=== PATIENT | female | born 1955 | race Two or more races ===

== ENCOUNTER 2018-11-17 17:04 | Emergency (ER) | payer OTHER ==
[~2018-11-17] VITALS: Ht 162.6 cm; Wt 90.7 kg
[~2018-11-17 17:04] MED LIST: AUGMENTIN 875-1 EACH PO; CARISOPRODOL350 MG PO; FUROSEMIDE20 MG PO; METFORMIN HCL500 MG PO; MORPHINE SULFA100 MG PO; MORPHINE SULFAT30 M1 PO; OXYCODONE-ACET1 EAC3 PO; POTASSIUM CHLO20 ME1 PO; PROMETHAZINE HC25 M1 PO
--- OUTSIDE RECORDS SUMMARY | 2018-11-17 17:08 | XMS ---
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 E.D. VISIT COUNT (12 MO.) [address] [facility] [place] [address] [facility] [place] TOTAL 2 NOTE: Visits indicate total known visits. ED/UCC VISIT TRACKING (12 MO.) 11/17/2018 17:05 [place]ENE Chris [place] TYPE: Emergency COMPLAINT: - PAIN [facility]2018 07:[facility] DIAGNOSES: - Strain of muscle and tendon of unspecified wall of thorax, initial encounter - back and neck pain - Neck Pain - Strain of muscle, fascia and tendon at neck level, initial encounter - Back Pain INPATIENT VISIT TRACKING (12 MO.) No inpatient visits to display in this time frame [email or web address]
== END 2018-11-17 17:55 | disposition home or self-care (01) ==
LOC: ED 17:04
DX: G89.29 Other chronic pain (principal); Z90.49 Acquired absence of other specified parts of digestive tract; Z88.5 Allergy status to narcotic agent; Z88.8 Allergy status to other drugs, medicaments and biological substances; Z79.899 Other long term (current) drug therapy
CPT/HCPCS: 99283

== ENCOUNTER 2018-11-17 18:39 | Emergency (ER) | payer OTHER ==
[~2018-11-17] VITALS: Ht 162.6 cm; Wt 90.7 kg
--- OUTSIDE RECORDS SUMMARY | 2018-11-17 18:42 | XMS ---
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 E.D. VISIT COUNT (12 MO.) 1 Rashid Maria LobitoKathleen 2 RENE Alicea TOTAL 3 NOTE: Visits indicate total known visits. ED/UCC VISIT TRACKING (12 MO.) 11/17/2018 18:39 RENE Chris [place] TYPE: Emergency COMPLAINT: - PAIN NON INJURY 11/17/2018 17:05 RENE Chris [place] TYPE: Emergency COMPLAINT: - PAIN NON INJURY [facility]2018 [facility] DIAGNOSES: - Strain of muscle and tendon of unspecified wall of thorax, initial encounter - back and neck pain - Neck Pain - Strain of muscle, fascia and tendon at neck level, initial encounter - Back Pain INPATIENT VISIT TRACKING (12 MO.) No inpatient visits to display in this time frame [id number]
== END 2018-11-17 22:33 | disposition home or self-care (01) ==
LOC: ED 18:39
PROC: 0T9B70Z Drainage of Bladder with Drainage Device, Via Natural or Artificial Opening (ICD-10-PCS; principal; 2018-11-17)
DX: M54.5 Low back pain (principal); G89.29 Other chronic pain; F11.23 Opioid dependence with withdrawal; Z90.49 Acquired absence of other specified parts of digestive tract; Z79.899 Other long term (current) drug therapy; Z88.5 Allergy status to narcotic agent; Z88.8 Allergy status to other drugs, medicaments and biological substances
CPT/HCPCS: 51701; 72100; 81001; 99284-25; J2270

== ENCOUNTER 2023-11-25 16:06 | Emergency (ER) | payer MEDICARE, OTHER ==
[~2023-11-25] VITALS: Ht 162.6 cm; Wt 72.3 kg
[~2023-11-25 16:06] MED LIST changes: +BUPRENORPHINE HC8 MG SL
[2023-11-25] MEDS ORDERED: BRIXADI8 MG/0.16 PO (17:27)
[2023-11-25] MEDS ORDERED: buprenorphine HCL 8 MG TAB.SUBL SL ONE (17:30)
[2023-11-25 17:38] VITALS: BP 135/75
== END 2023-11-25 17:39 | disposition home or self-care (01) ==
LOC: ED 16:06
DX: Z76.0 Encounter for issue of repeat prescription (principal); G89.29 Other chronic pain; Z79.891 Long term (current) use of opiate analgesic; Z91.148 Patient's other noncompliance with medication regimen for other reason; Z79.84 Long term (current) use of oral hypoglycemic drugs; Z79.899 Other long term (current) drug therapy; Z88.5 Allergy status to narcotic agent; Z88.8 Allergy status to other drugs, medicaments and biological substances
CPT/HCPCS: 99283

== ENCOUNTER 2023-12-01 05:56 | Inpatient (IN) | payer MEDICARE, OTHER ==
[~2023-12-01] VITALS: Ht 162.6 cm; Wt 76.6 kg
[~2023-12-01 05:56] MED LIST changes: +BRIXADI8 MG/0.16 PO
[2023-12-01] MEDS ORDERED: ZANAFLEX4 MG PO (06:00)
[2023-12-01] MEDS ORDERED: LACTATED RINGER'S 1,000 ML IV ONE (06:15)
[2023-12-01] MEDS ORDERED: ondansetron HCL 4 MG/2 ML VIAL IV ONE (06:15)
[2023-12-01] MEDS ORDERED: FAMOTIDINE 20 MG/ 2 ML VIAL IV ONE (06:15)
[2023-12-01] MEDS ORDERED: KETOROLAC TROMETHAMINE 15 MG/ML VIAL IV ONE (06:15)
[2023-12-01 06:24] LABS: BILIRUBIN, URINE NEGATIVE (negative); BLOOD/HGB, URINE NEGATIVE (Negative); KETONE, URINE NEGATIVE (Negative); LEUK ESTERASE, URINE TRACE (negative); NITRITE, URINE NEGATIVE (negative)
[2023-12-01 06:28] LABS: BASOPHILS 0.8 % (0-2); EOSINOPHILS 2.1 % (0-6); HEMATOCRIT 34.8 % (35.0-50.0); HEMOGLOBIN 11.8 g/dL (12.0-18.0); LYMPHOCYTES 19.4 % (24-44); MCH 31.3 (27-36); MCHC 33.9 g/dl (30-36); MCV 92.4 fl (81-99); MONOCYTES 6.1 % (0-12); NEUTROPHILS 71.6 % (39-80); PLATELET COUNT 276 K/uL (140-440); RBC 3.77 M/ul (4.3-5.7)
[2023-12-01 06:33] LABS: BACTERIA, URINE NONE SEEN /hpf (negative); CASTS, URINE NONE SEEN \\lpf; COLLECTION TYPE, URINE CLEAN CATCH; CRYSTALS, URINE NONE SEEN (0-1+); EPITHELIAL CELLS, URINE RARE /lpf (0-1+); RED BLOOD CELLS, URINE 0-1 /hpf (0-5); REFLEX CULTURE, URINE No (No)
[2023-12-01 06:41] LABS: ALBUMIN 3.4 g/dL (3.4-5.0); ALBUMIN/GLOBULIN RATIO 0.94 (1.1-2.4); ANION GAP 14.2 (7-21); BILIRUBIN, TOTAL 0.4 ng/dL (0.2-1.0); BUN/CREATININE RATIO 13.43 (6.0-28.6); CALCIUM 8.5 mg/dL (8.5-10.1); CREATININE, SERUM 0.67 mg/dL (0.55-1.02); POTASSIUM 3.2 mmol/L (3.5-5.1)
[2023-12-01] MEDS ORDERED: ondansetron HCL 4 MG/2 ML VIAL IV PRN ×2 (07:30→09:30)
[2023-12-01] MEDS ORDERED: MIDAZOLAM HCL 2 MG/2 ML VIAL IV ONE (07:30)
[2023-12-01] MEDS ORDERED: LIDOCAINE 2% VISCOUS 6 ML SYR TOP ONE (07:30)
[2023-12-01] MEDS ORDERED: LACTATED RINGER'S 1,000 ML IV SCH (07:30)
[2023-12-01 08:19] VITALS: BP 147/81
--- NOTE | 2023-12-01 08:52 | NUR ---
PT CALLED TO VOID. PLACED BSC AT 90 DEGREE ANGLE TO BED. PLACED NON-SKID SOCKS ON PT. ASSISTED PT TO EDGE OF BED. PT DENIED DIZZINESS OR LIGHT HEADEDNESS. ASSISTED PT TO STAND AND PIVOT. PT SAT ON COMMODE, WIPED SELF, AND WAS ABLE TO PIVOT BACK TO BED WITHOUT DIFFICULTY. PT PERFORMED HAND HYGIENE. WARM BLANKETS AND EXTRA PILLOW BROUGHT. CALL LIGHT WITHIN REACH. PT DENIES ANY FURTHER NEEDS AT THIS TIME.
[2023-12-01] MEDS ORDERED: FAMOTIDINE 20 MG/ 2 ML VIAL IV SCH (09:00)
--- NOTE | 2023-12-01 09:00 | NUR ---
REPORT RECIEVED FROM AGA ED RN. PATIENT TRANSFERED FROM ER NURSE TO ROOM 126. PATIENT ASSSITED TO BED AND TOELRATED WELL. SKIN CHECK PREFORMED WITH JEEVAN AND ED RN. PATIENT ARRIVED WITH NG TUBE IN PLACE. PLACED TO LOW INT. SUCTION. MD RANDALL WILL BE IN TO SEE PATIENT. PATIENT IS A MEDSURG OVERFLOW PATIENT. PATIENT DENIES ANY OTHER NEEDS AT THIS TIME.
[2023-12-01] MEDS ORDERED: DEXTROSE 5% - LACTATED RINGERS 1,000 ML IV SCH (09:30)
[2023-12-01] MEDS ORDERED: HYDROmorphone HCL 1 MG/ML SYR IV PRN (09:30)
[2023-12-01] MEDS ORDERED: PROCHLORPERAZINE EDISYLATE 10 MG/2 ML VIAL IV PRN (09:30)
[2023-12-01] MEDS ORDERED: ACETAMINOPHEN 650 MG SUPP PR PRN (09:30)
--- NOTE | 2023-12-01 09:30 | NUR ---
RESIDENT TECH IN TO ASSSIT PATIENT UP TO THE BEDSIDE CAMMODE. PATIENT TOELRATED WELL. PATIENT BACK IN BED AND CALL LIGHT IN REACH.
[2023-12-01] MEDS ORDERED: PANTOPRAZOLE SODIUM 40 MG/10 ML VIAL IV SCH (09:31)
[2023-12-01] MEDS ORDERED: ENOXAPARIN SODIUM 40 MG/0.4 ML SYR SUB-Q SCH (09:31)
[2023-12-01] MEDS ORDERED: phenoL 177 ML SPRAY MT PRN (09:45)
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
--- NOTE | 2023-12-01 11:00 | NUR ---
MEDICATIONS GIVEN. PRN PAIN MEDICATION PROVIDED. PATIENT REPORTS CHRONIC YULIYA AND ACUTE ABD PAIN. MD NOTIFIED OF HOME MEDICATIONS .MD WILL REVIEW AND ORDER. PATIENT RESTING IN BED WITH CALL LIGHT.
--- NOTE | 2023-12-01 11:13 | NUR ---
VISITED DURING SPIRITUAL CARE ROUNDS. PT APPEARED TO BE SLEEPING. DID NOT DISTURB. PROVIDED PRAYER.
[2023-12-01 12:04] VITALS: BP 114/48
--- NOTE | 2023-12-01 13:04 | NUR ---
PATIENT RESTING IN BED. PAIN IMPROVED WITH MEDICATION. PATIENT HAS IRA LIGHT AND CALLS APPROPRIATELY. PT/OT IN TO DO ASSESSMENT. STUDENT RESIDENT TECH IN TO ASSIST IF NEEDED.
[2023-12-01] MEDS ORDERED: MULTIVITAMINS FOLIC ACID IV ONE (14:30)
[2023-12-01] MEDS ORDERED: [UNRECOGNIZED DRUG - OTHER] IV ONE (14:30)
[2023-12-01] MEDS ORDERED: THIAMINE HCL IV ONE (14:30)
--- NOTE | 2023-12-01 14:35 | EKG ---
[facility] [address] [facility] [place], [place] [address] Signed Normal sinus rhythm Normal ECG No previous ECGs available Confirmed by ALIZA PRINGLE MD ([id number]) on 12/01/2023 2:35:22 PM Electronically Signed By: ALIZA PRINGLE 12/01/23 1435 PATIENT NAME: ESPERANZA JULES MY Electrocardiogram DATE OF : 51 PHYSICIAN: ALIZA PRINGLE REPORT #: [id number] REPORT IS CONFIDENTIAL AND NOT TO BE RELEASED WITHOUT AUTHORIZATION
[2023-12-01] MEDS ORDERED: buprenorphine HCL 8 MG TAB.SUBL SL SCH (15:00)
--- NOTE | 2023-12-01 15:15 | NUR ---
PATIENT PAIN MEDICATION PROVIDED. PATIENT REPORTS CHONIC PAIN AND LEFT LOWER QUADRANT PAIN. PATIENT DENIES ANY OTHER NEEDS AT THIS TIME. CALL LIGHT IN REACH. PATIENT ALERT AND ORIENTED.
--- NOTE | 2023-12-01 15:32 | NUR ---
UR CLINICAL REVIEW: 2MN LUCIO RULE MEDICARE INPT 12/01/23 @ 0725 ORDER MATCHES STATUS NO AUTH REQUIRED PER MEDICARE RULES PLAN TO RETURN HOME WITH CAREGIVER LIKELY WHEN STABLE
--- NOTE | 2023-12-01 17:00 | NUR ---
PATIENT RESTING AT THIS TIME. CALL LIGHT IN REACH. WILL ENCOURAGE PATIENT TO GET UP AND VOID SOON. PATIENT REPORTS IMPRVED PAIN 6/10 WITH PAIN MEDICATION.
--- NOTE | 2023-12-01 17:09 | NUR ---
Pt is not feeling well. Agrees to answer questions. Lives alone in a Duplex and has a state paid cg. She was attempting to hire another cg. Pt uses a wc and a scooter. She states she grocery shops by taking a taxi. Cg assists with house hold tasks. Pt states she showers self. Plans on dc to home when cleared medically. Denies financial issues. She cannot remember her pcp's name. NG is in place and pts states she is uncomfortable. Denies need for me to get the nurse.
[2023-12-01 17:28] VITALS: BP 125/67
--- NOTE | 2023-12-01 18:31 | NUR ---
PATIENT ASSISSTED UP TO THE CAMMODE WITH STUDENT RESIDENT LATOSHA. PATIENT TOELRATED WELL. FRIENDS IN TO VISIT WITH PATIENT. PATIENT REPORTS IMPROVEMENT IN HER PAIN. PATIENT BACK TO BED AND CALS APPROPRIATELY.
--- NOTE | 2023-12-01 19:13 | NUR ---
REPORT RECEIVED AND CARE ASSUMED FROM TIFFANIE SANCHEZ.
[2023-12-01 19:39] VITALS: BP 120/55
--- NOTE | 2023-12-01 19:56 | NUR ---
SHIFT ASSESSMENT COMPLETE. SEE [employer] FOR DETAILS. PT RESTING IN BED WITH EYES CLOSED, EASILY RESPONDS TO VOICE. PT COMPLAINT OF PAIN. PT SCHEDULED PAIN MEDICATION AVAILABLE AND ACCEPTABLE TO PT FOR CONTROL. PT ORIENTED TO POC, ROOM AND UNIT. PT EDUCATED TO NG, PIV AND CALL LIGHT. PT VERBALIZES UNDERSTANDING TO USE CALL LIGHT WITH NEEDS. PT PIV PATENT AND INFUSING PER EMAR. PT NG PATENT TO LIS WITH GREEN-BROWN SCANT DRAINAGE VISUALIZED. BED IN LOW, LOCKED POSITION WITH BED ALARM ON FOR PT SAFETY. PT PERSONAL ITEMS IN REACH. PT DENIES NEEDS AT THIS TIME. NAD NOTED VIA DIRECT OBS AND PT STATEMENT.
[2023-12-01] MEDS ORDERED: POTASSIUM CHLORIDE 10 MEQ/100 ML BAG IV SCH (20:00)
--- NOTE | 2023-12-01 21:27 | NUR ---
PT RESTING IN BED WITH EYES CLOSED, EASILY AWAKENED TO VOICE. PT DENIES NEEDS AT THIS TIME. MAINTENANCE FLUIDS AND K+ GTT INFUSING PER EMAR INTO PATENT PIV. PT VERBALIZES UNDERSTANDING TO USE CALL LIGHT WITH NEEDS. NG TO LIS WITH SCANT DRAINAGE. BED IN LOW, LOCKED POSITION WITH BED ALARM ON FOR PT SAFETY. NAD NOTED VIA DIRECT OBS AND PT STATEMENT.
--- NOTE | 2023-12-01 22:37 | NUR ---
PT CALLED FOR AND PROVIDED ASSIST TO BSC AND BACK TO BED WITHOUT INCIDENT. PT DENIES ADDITIONAL NEEDS. PT PERFORMED SELF PERICARE. PT SELF REPOSITIONING. BED IN LOW, LOCKED POSITION. BED ALARM ON FOR PT SAFETY. PATENT PIV WITH MAINTENANCE FLUIDS AND POTASSIUM GTT INFUSING PER EMAR. NG TO LIS PER ORDERS. NAD NOTED VIA PT STATEMENT AND DIRECT OBS.
[2023-12-02] VITALS (8 sets, daily range): BP systolic 128–145; BP diastolic 41–78
--- NOTE | 2023-12-02 00:25 | NUR ---
SHIFT ASSESSMENT COMPLETE. SEE [employer] FOR DETAILS. PT RESTING IN BED, DENIES NEEDS AT THIS TIME. CALL LIGHT IN REACH. PT SELF REPOSITIONING. PIV PATENT WITH MAINTENANCE FLUIDS INFUSING PER EMAR. NG TO LIS, DRAINING SCANT GREEN-BROWN FLUID. BED IN LOW, LOCKED POSITION WITH BED ALARM ON FOR PT SAFETY. VSS AND NAD NOTED VIA DIRECT OBS AND PT STATEMENT.
--- NOTE | 2023-12-02 01:24 | NUR ---
PT REQUESTED AND PROVIDED PAIN MEDICATION PER EMAR FOR 8/10 GENERALIZED PAIN. PT DENIES ADDITIONAL NEEDS. CALL LIGHT IN REACH. BED IN LOW, LOCKED POSITION. NAD NOTED VIA DIRECT OBS AND PT STATEMENT.
--- NOTE | 2023-12-02 02:58 | NUR ---
PT REQUESTED AND PROVIDED ASSIST TO BSC AND BACK TO BED WITHOUT INCIDENT.
--- NOTE | 2023-12-02 04:19 | NUR ---
SHIFT ASSESSMENT COMPLETE. SEE [facility] FOR DETAILS. PT RESTING IN BED, DENIES NEEDS AT THIS TIME. CALL LIGHT IN REACH. PIV PATENT WITH MAINTENANCE GTT INFUSING. NG TO LIS PATENT WITH SCANT DRAINAGE. PT SELF REPOSITIONING. BED IN LOW, LOCKED POSITION. BED ALARM ON. NAD NOTED VIA DIRECT OBS AND CONTINUOUS MONITOR.
[2023-12-02 05:44] LABS: BASOPHILS 0.5 % (0-2); EOSINOPHILS 2.1 % (0-6); HEMATOCRIT 30.9 % (35.0-50.0); HEMOGLOBIN 10.4 g/dL (12.0-18.0); LYMPHOCYTES 22.1 % (24-44); MCH 31.5 (27-36); MCHC 33.8 g/dl (30-36); MCV 93.1 fl (81-99); MONOCYTES 7.5 % (0-12); NEUTROPHILS 67.8 % (39-80); PLATELET COUNT 221 K/uL (140-440); RBC 3.31 M/ul (4.3-5.7); RDW 14.1 (10.5-15.0)
[2023-12-02 06:01] LABS: ALBUMIN 2.8 g/dL (3.4-5.0); ALBUMIN/GLOBULIN RATIO 0.88 (1.1-2.4); ANION GAP 6.5 (7-21); BILIRUBIN, TOTAL 0.7 ng/dL (0.2-1.0); BUN/CREATININE RATIO 5.35 (6.0-28.6); CREATININE, SERUM 0.56 mg/dL (0.55-1.02); MAGNESIUM 1.6 mg/dL (1.8-2.4); PHOSPHORUS, INORGANIC 3.3 mg/dL (2.5-4.9); POTASSIUM 4.5 mmol/L (3.5-5.1)
--- NOTE | 2023-12-02 06:03 | NUR ---
PT REQUESTED AND PROVIDED ASSIST TO BSC AND BACK TO BED WITHOUT INCIDENT. PT REQUESTED AND PROVIDED PRN PAIN MEDS PER EMAR. PT DENIES ADDITIONAL NEEDS AT THIS TIME. CALL LIGHT IN REACH. BED IN LOW, LOCKED POSITION, NG TO LIS, PIV PATENT WITH MAINTENANCE FLUIDS INFUSING. NAD NOTED VIA PT STATEMENT AND DIRECT OBS.
--- NOTE | 2023-12-02 06:11 | NUR ---
DR JENKINS NOTIFIED OF PT MAG 1.6. NO ORDERS RECEIVED.
--- NOTE | 2023-12-02 07:23 | NUR ---
REPORT GIVEN AND CARE ENDORSED TO DAYSHIFT RNs. NAD NOTED VIA DIRECT OBS.
--- NOTE | 2023-12-02 08:11 | NUR ---
IN ROOM TO DO MORNING CARES AND VS. PT REPORTING PAIN "IS WORSE TODAY" AND RATES IT AN 12/30. PRIMARY RN NOTIFIED. ASSISTED PT WITH WARM WASHCLOTH FOR FACE AND WITH HER ORAL CARE. CALL LIGHT WITHIN REACH. PT DENIES ANY FURTHER NEED AT THIS TIME.
--- NOTE | 2023-12-02 08:45 | NUR ---
PATIENT ASSESSMENT COMPLETED. PATIENT TO LOW INTERMITMENT SUCATION. VERY MINIMAL OUTPUT NOTED IN CANISTER SINCE ADMISSION. PATIENT REPORTS 8/10 PAIN. SCHEDULED PAIN MEDICATION GIVEN AT THIS TIME. PATIENT STOOD AND UP TO CAMMODE WITH STAND-BY ASSIST. PATIENT REPORTS CHRONIC NECK/BACK/ LEG GEN AND ACUTE ABD PAIN. PATIENT DENIES IMPROVEMENT IN ABD SINCE ADMISSION. PATIENT ABD SOFT BUT TENDER. PATIENT BOWEL TONES RARE. PATIENT DNEIES GAS. NO SKIN ISSUES NOTED. PATIENT BREATH SOUNDS CLEAR. PATIENT REMAINS A MEDSURG OVERFLOW PATIENT. PATIENT HAS CALL LIGHT AND CALLS APPROPRIATELY.
--- NOTE | 2023-12-02 08:56 | NUR ---
STUDENT RESIDENT TECH IN TO ASSIST PATIENT UP TO WHEELCHAIR WITH IMAGING STAFF. PATIENT NG TUBE CLAMPED FOR STUDY AND PATIENT SALINE LOCKED. PATIENT TOELRATED WELL. BEDDING CHANGED AT THIS TIME.
[2023-12-02] MEDS ORDERED: MAGNESIUM SULFATE 2 GM/50 ML BAG IV ONE (09:00)
--- NOTE | 2023-12-02 09:43 | NUR ---
PATIENT ARRIVED BACK FROM IMAGING STUDDIES. PTIENT WILL HAVE A FOLLOW-UP STUDY AROUND . PER PROTOCOL WILL KEEP NG TUBE CLAMMED UNTIL STUDIES ARE FINISHED. PATIENT UP IN CHAIR. PRN PAIN MEDICATION PROVIDED FOR CONTINUED PAIN 12/30. PATIENT HAS WARM BLANKET. CALL LIGHT IN REACH. PATIENT TV ON FOR COMFORT.
--- NOTE | 2023-12-02 11:04 | NUR ---
VISITED DURING SPIRITUAL CARE ROUNDS. PT APPEARED TO BE SLEEPING. DID NOT DISTURB. PROVIDED PRAYER.
--- NOTE | 2023-12-02 12:00 | NUR ---
PATIENT CONTINUES TO REPORT PAIN /. PRN PAIN MEDICATION GIVEN. IMAGING DONE AND AWAITING RESULTS. STAFF CALLED AND STSTED WE COULD RESUME HER ORDERS OF LOW INT. SUCTION NOW AT THIS TIME AND ALL IMAGES HAVE BEEN COMPLETED.
--- NOTE | 2023-12-02 12:25 | NUR ---
CALLED MD AND UPDATED OF PATIENTS IMAGING RESULTS. PER MD PULL NG TUBE AND ADVANCE TO FULL LIQUID AND MONITOR PATIENT. UPDATED THAT PATIENT CONTINUES TO HAVE / ABD PAIN. PATIENT DOES REPORT PASSING GAS AND LAST BM WAS TWICE ON 11/29. WILL MONITOR FOR CHNAGES.
--- NOTE | 2023-12-02 14:00 | NUR ---
PATIENT UPDATED ON PLAN OF CARE. NG TUBE REMOVED. FULL LIQUID TRAY WILL BE ORDERED. PATIENT REPORTS NEEDING TO GET UP AND TRY TO HAVE A BM. ASSISTED TO CAMMODE. PATIENT DENIES PAIN AT THIS TIME.
--- NOTE | 2023-12-02 14:20 | NUR ---
PATIENT BACK TO BED AND TOELRATED WELL. PATIENT HAD A LARGE LIQUID/SOFT BP. PATIENT REPORTS "THE PAIN SUDDENLY STOPPED AND IM FEELING SO MUCH BETTER NOW" PATIENT TOLERATED NG TUBE REMOVAL WELL. PATIENT STATED "DO YOU THINK I COULD GO HOME NOW" EDUCATED PROVIDER WANTS TO ADVANCE ON FULL LIQUID AND MONITOR PATIENTS ABILITY TO TOLERATE FOOD. [facility] NO OTHER NEEDS AT THIS TIME.
--- NOTE | 2023-12-02 14:45 | NUR ---
REPROT GIVEN TO TIFFANIE CALLEJAS. ALL QUESTIONS ANSWERED. UPDATED ON PLAN OF CARE. PATIENT TRANSFERED IN BED TO ROOM 113. ALL BELONGINGS SENT WITH PATIENT. PATIENT CONTINUES TO DENY PAIN AT THIS TIME. PATIENT HAS CALL LIGHT IN REACH. LUNCH WAS ORDERED.
--- NOTE | 2023-12-02 14:52 | NUR ---
PT TRANSFERED TO ROOM 113, ORIENTED TO ROOM AND CALL LIGHT. PT DENIES FURTHER NEEDS AT THIS TIME. CALL LIGHT IN REACH.
--- NOTE | 2023-12-02 15:49 | NUR ---
PT SITTING UP IN CHAIR WITH WORKING ON HER FULL LIQUID TRAY SLOWLY, TOLERATING WELL. CALL LIGHT WITHIN REACH.
--- NOTE | 2023-12-02 16:30 | NUR ---
Patient in chair at this time. ENTERPRISE SYSTEMS ADMINISTRATOR assisted patient to commode from chair and then from commode back to the chair. Patient had bowel movement in commode. Patient was given warm and damp washcloth to wipe off face. Patient also requested for pain medications, RN has been notified. Call light within reach, no further needs at this time.
--- NOTE | 2023-12-02 18:05 | NUR ---
PT SITTING UP IN CHAIR WITH LEGS ELEVATED, CALL LIGHT WITHIN REACH. NO REQUESTS AT THIS TIME.
--- NOTE | 2023-12-02 19:24 | NUR ---
BEDSIDE REPORT..PATIENT UP IN RECLINER, EYES CLOSED RESPIRATIONS SHALLOW AT 14/MIN, NO DISTRESS NOTED
--- NOTE | 2023-12-02 21:20 | NUR ---
TALKED TO IN REGARDS TO PATIENT BEING DROWSY AND PLAN TO HOLD BUPRENORPHINE FOR AN HOUR OR 2, SAID THATS FINE TO HOLD UNLESS WAKES UP AND ASKS FOR IT.
--- NOTE | 2023-12-03 00:01 | NUR ---
PATIENT RESTING IN RECLINER EYES CLOSED. THIS RN INTO ROOM, CHECKED IV SITE, PATIENT WOKE TO RN AND CHAIR SIDE. THIS RN ASKED IF SHE NEEDED ANYTHING SHE SAID "NO" THIS RN ASKED PATIENT IF SHE STILL WANTS TO REMAIN IN RECLINER? PATIENT SAID "FOR NOW" NO REPORT OF PAIN OR NAUSEA AT THIS TIME.
--- NOTE | 2023-12-03 01:00 | NUR ---
PATIENT CONTINUES TO RESTING IN RECLINER SHE DECLINES WANTING ASSISTANCE TO TRANSFER TO BED.
--- NOTE | 2023-12-03 02:37 | NUR ---
PATIENT UP OUT OF RECLINER TO BEDSIDE COMMODE SHE VOIDED 250ML CONCENTRATED YELLOW URINE. SHE REPORTS PAIN 9/10 AT HER BACK/LEGS/ABD. SAID OK TO GIVE BUPRENORPHINE LATER IN SHIFT IF PATIENT WAKES AND REQUESTS PAIN MEDICATIONS.
[2023-12-03 04:43] VITALS: BP 121/50
--- NOTE | 2023-12-03 04:54 | NUR ---
CALL LIGHT ANSWERED. PT NEEDED TO USE BSC. APPLICATION PACKAGING CONSULTANT 1PA WITH FWW TO BSC. OUTPUT MEASURED AND PT ASSISTED BACK TO BED AND BREIF CHANGED. APPLICATION PACKAGING CONSULTANT OBTAINED VITALS AND I&O. PT STATES NO FURTHER NEEDS AT THIS TIME. CALL LIGHT PLACED WITHIN REACH.
[2023-12-03 05:29] LABS: BASOPHILS 0.5 % (0-2); EOSINOPHILS 2.7 % (0-6); HEMATOCRIT 29.8 % (35.0-50.0); HEMOGLOBIN 10.1 g/dL (12.0-18.0); LYMPHOCYTES 26.7 % (24-44); MCH 31.8 (27-36); MCHC 33.8 g/dl (30-36); MONOCYTES 9.5 % (0-12); NEUTROPHILS 60.6 % (39-80); PLATELET COUNT 207 K/uL (140-440); RBC 3.17 M/ul (4.3-5.7); RDW 13.6 (10.5-15.0)
[2023-12-03 05:41] LABS: ANION GAP 7.8 (7-21); BUN/CREATININE RATIO 10.9 (6.0-28.6); CALCIUM 8.2 mg/dL (8.5-10.1); CREATININE, SERUM 0.55 mg/dL (0.55-1.02); MAGNESIUM 1.8 mg/dL (1.8-2.4); PHOSPHORUS, INORGANIC 3.3 mg/dL (2.5-4.9); POTASSIUM 3.8 mmol/L (3.5-5.1)
--- NOTE | 2023-12-03 05:51 | NUR ---
PATIENT ALERT AND ORIENTED. SHE REPORTS NO NEEDS AT THIS TIME, SHE REPORTS SHE WAS ABLE TO SLEEP. ASSESSMENT COMPLETE, BT HYPERATIVE.
--- NOTE | 2023-12-03 07:15 | NUR ---
Pt report received from TIFFANIE Marks. Pt is resting, supine in bed, awake, A&O x4, reports pain in her belly 7 out of 10. Pt denies any needs at this time. Call light in reach, side rails up x4.
--- NOTE | 2023-12-03 08:26 | NUR ---
FINANCIAL SYSTEMS DIRECTOR WENT INTO ROOM FOR HOURLY ROUNDINGS, PATIENT WAS LYING IN BED AND STATED THAT THEY HAD RESTROOM NEEDS. FINANCIAL SYSTEMS DIRECTOR ASSISTED PATIENT TO BEDSIDE COMMODE AND THEN BACK TO CHAIR. FINANCIAL SYSTEMS DIRECTOR PROVIDED WARM AND DAMP WASHCLOTH FOR FACE AND HANDS. CALL LIGHT WITHIN REACH, NO FURTHER NEEDS AT THIS TIME.
[2023-12-03 09:31] VITALS: BP 116/49
--- NOTE | 2023-12-03 09:58 | NUR ---
PATIENT IN CHAIR AT THIS TIME. VITALS AND I&O'S CHARTED. CALL LIGHT WITHIN REACH, NO FURTHER NEEDS AT THIS TIME.
[2023-12-03 10:42] VITALS: BP 116/49
--- NOTE | 2023-12-03 11:35 | DS ---
[facility] [address], [place] [address] Signed ADMISSION DATE: 12/01/2023 DISCHARGE DATE: 12/03/2023 FINAL DIAGNOSIS: Resolved small bowel obstruction, left lower quadrant/pelvis. PROCEDURES: 1. CT scan of the abdomen and pelvis. 2. Surgeon's small-bowel followthrough. HISTORY OF PRESENT ILLNESS: Linda is a 68-year-old female, who lives in a duplex by herself and has a caregiver. She tells me she has one son remaining of her three children. He lives in [place], [place]. However, apparently they are estranged from each other. She had developed 1-day history of left lower quadrant and left flank pain. She came to the emergency room for evaluation. Her vital signs and abdominal exam were unremarkable. Labs were unremarkable. CT scan, however, showed fluid-filled small bowel with a transition point in the left lower quadrant. An NG tube has been in place and I have been asked to admit her as a general surgeon on-call. HOSPITAL COURSE: Linda was admitted as above and treated conservatively. By the next day, she was feeling much better and had very little out her NG tube. We ordered a small-bowel follow-through and she did very well. The NG tube was discontinued and she tolerated a full liquid diet and has now had several bowel movements. She has no abdominal pain and no nausea or vomiting. She is back on her chronic medications and she feels like she is ready to go home. DISCHARGE PLANS AND MEDICATIONS: Linda is going to be discharged to home today. She will resume all her usual chronic medications. She will take her usual diet. She will follow her usual activity levels. She is welcome to follow up in my office as needed. She can always return to the emergency room if she has any return of symptoms. She should maintain her usual follow up with her primary care provider with the [facility] in [place], [place]. She has expressed understanding and agrees with the above plan. Dayna Davila MD Electronically Signed By: DAYNA DAVILA MD 12/03/23 1135 PATIENT NAME: LINDA JULES DISCHARGE SUMMARY DATE OF : 51 REPORT #: [id number] PHYSICIAN: DAYNA DAVILA MD PCP: BRIJESH BUCKLEY MD REPORT IS CONFIDENTIAL AND NOT TO BE RELEASED WITHOUT AUTHORIZATION [facility] [address], [place] [address] Signed ALB/MODL /[id number] cc: [facility] Dayna Davila MD Copies: DAYNA DAVILA MD ~ Electronically Signed By: DAYNA DAVILA MD 12/03/23 1135 PATIENT NAME: LINDA JULES DISCHARGE SUMMARY DATE OF : 51 REPORT #: [id number] PHYSICIAN: DAYNA DAIVLA MD PCP: BRIJESH BUCKLEY MD REPORT IS CONFIDENTIAL AND NOT TO BE RELEASED WITHOUT AUTHORIZATION
--- NOTE | 2023-12-03 12:01 | NUR ---
PATIENT IN CHAIR AT THIS TIME. CALL LIGHT WITHIN REACH, NO FURTHER NEEDS AT THIS TIME. CALL LIGHT WITHIN REACH, NO FURTHER NEEDS AT THIS TIME.
[2023-12-03 13:43] VITALS: BP 111/56
== END 2023-12-03 15:07 | disposition home or self-care (01) | DRG 390 ==
LOC: ED 05:56 → CCU 07:43 → MS 07:43 → CCU 07:44 → MS 12-02 14:50
PROVIDERS: Internal Medicine; ADMIT Colon & Rectal Surgery; ATTEND Colon & Rectal Surgery
DX: K56.609 Unspecified intestinal obstruction, unspecified as to partial versus complete obstruction (principal); M54.2 Cervicalgia; M54.9 Dorsalgia, unspecified; G89.29 Other chronic pain; E87.6 Hypokalemia; Z87.19 Personal history of other diseases of the digestive system; M79.7 Fibromyalgia; G43.909 Migraine, unspecified, not intractable, without status migrainosus; Z90.49 Acquired absence of other specified parts of digestive tract; Z98.890 Other specified postprocedural states; Z88.5 Allergy status to narcotic agent; Z88.8 Allergy status to other drugs, medicaments and biological substances; Z79.899 Other long term (current) drug therapy; Z99.3 Dependence on wheelchair; Z87.442 Personal history of urinary calculi; Z87.891 Personal history of nicotine dependence; E83.42 Hypomagnesemia
CPT/HCPCS: 36415; 71045; 74176; 74250; 80048; 80053; 81001; 83690; 83735; 84100; 84134; 85025; 93005; 93010; 96374; 96375; 97161; 97165; 97530; 99285-25; C9113; J1170; J1650; J1885; J2250; J2405; J3411; J3475; J3480; J7121